=== PATIENT | female | born 1945 | race Caucasian/White ===

== ENCOUNTER → 2017-11-01 | Outpatient (CLI) | payer MEDICARE | END | disposition home or self-care (01) | LOC: ROC 09:50 | PROVIDERS: ATTEND Radiology Radiation Oncology | DX: C20 Malignant neoplasm of rectum (principal); C34.2 Malignant neoplasm of middle lobe, bronchus or lung; J45.909 Unspecified asthma, uncomplicated; Z79.01 Long term (current) use of anticoagulants; Z90.710 Acquired absence of both cervix and uterus; Z93.3 Colostomy status | CPT/HCPCS: G0463 ==

== ENCOUNTER → 2018-02-20 | Outpatient (CLI) | payer MEDICARE | END | disposition home or self-care (01) | LOC: ROC 08:10 | PROVIDERS: ATTEND Radiology Radiation Oncology | DX: C34.12 Malignant neoplasm of upper lobe, left bronchus or lung (principal); C50.412 Malignant neoplasm of upper-outer quadrant of left female breast; C78.5 Secondary malignant neoplasm of large intestine and rectum; Z79.01 Long term (current) use of anticoagulants | CPT/HCPCS: G0463 ==

== ENCOUNTER → 2018-05-15 | Outpatient (CLI) | payer MEDICARE | END | disposition home or self-care (01) | LOC: ROC 07:41 | PROVIDERS: ATTEND Radiology Radiation Oncology | DX: C78.5 Secondary malignant neoplasm of large intestine and rectum (principal); C78.02 Secondary malignant neoplasm of left lung; C80.1 Malignant (primary) neoplasm, unspecified | CPT/HCPCS: G0463 ==

== ENCOUNTER 2018-05-19 09:24 | Inpatient (IN) | payer MEDICARE ==
[~2018-05-19] VITALS: Ht 154.9 cm; Wt 70.9 kg
[~2018-05-19 09:24] MED LIST: BUPIVACAINE/PF 0.5% ONE; EPINEPHRINE 1 MG/ML, 1ML ONE
[2018-05-19] MEDS ORDERED: LACTATED RINGERS 1,000 ML IV SCH (10:12)
[2018-05-19] MEDS ORDERED: ALBU2TAB PO (10:21)
[2018-05-19] MEDS ORDERED: OXYC-307 PO (10:21)
[2018-05-19] MEDS ORDERED: ALBU90AE INH (10:21)
[2018-05-19] MEDS ORDERED: WARF4TAB65 PO (10:21)
[2018-05-19] MEDS ORDERED: PRED10TA14 PO (10:21)
[2018-05-19] MEDS ORDERED: FENT-58 TP (10:21)
[2018-05-19] MEDS ORDERED: LORA-445 PO (10:22)
[2018-05-19 10:25] VITALS: BP 146/84
[2018-05-19] MEDS ORDERED: SCOPOLAMINE PATCH, 1.5MG PATCH.TD72 TD ONE (10:30)
[2018-05-19] MEDS ORDERED: ONDANSETRON ODT 8 MG PO ONE (10:30)
[2018-05-19] MEDS ORDERED: ACETAMINOPHEN 500 MG TABLET PO ONE (10:30)
[2018-05-19] MEDS ORDERED: PLEASE ENTER HEIGHT AND WEIGHT MC SCH (10:30)
[2018-05-19] MEDS ORDERED: PLEASE ENTER ALLERGIES MC SCH (10:30)
[2018-05-19] MEDS ORDERED: OxyconTIN ER 10 MG TAB.ER PO ONE (10:30)
[2018-05-19 11:15] LABS: BASOPHILS % (AUTO) 0 % (0-1); EOSINOPHILS % (AUTO) 0 % (1-7); LYMPHOCYTES # (AUTO) 0.37 x10^3/uL (1-3.4); LYMPHOCYTES % (AUTO) 6 % (22-44); MD NO; MEAN CORPUSCULAR HEMOGLOBIN 29.9 pg (27.0-34.8); MEAN CORPUSCULAR HGB CONC 32.8 g/dL (32.4-35.8); MEAN PLATELET VOLUME 7.8 fL (7.4-10.4); MONOCYTES # (AUTO) 0.13 x10^3/uL (0.2-0.8); MONOCYTES % (AUTO) 2 % (2-9); NEUTROPHILS # (AUTO) 5.25 x10^3/uL (1.8-6.8); NEUTROPHILS % (AUTO) 91 % (42-75); PLATELET COUNT 274 x10^3/uL (130-400); RED BLOOD COUNT 4.29 x10^6/uL (3.82-5.3); RED CELL DISTRIBUTION WIDTH 16.8 % (9.6-15.2)
[2018-05-19 11:22] LABS: INTERNATIONAL NORMALIZED RATIO 0.99 (0.93-1.1); PROTHROMBIN TIME 10.2 Seconds (9.6-11.5)
[2018-05-19 11:25] LABS: ALANINE AMINOTRANSFERASE 38 U/L (12-78); ALBUMIN 3.6 g/dL (3.4-5.0); ANION GAP 6 mmol/L (5-15); CALCIUM 9.4 mg/dL (8.5-10.1); CHLORIDE 110 mmol/L (98-107); CREATININE 0.86 mg/dL (0.55-1.02)
[2018-05-19 11:27] LABS: ALKALINE PHOSPHATASE 191 U/L (45-117); BILIRUBIN,TOTAL 0.6 mg/dL (0.2-1.0)
[2018-05-19] MEDS ORDERED: MIDAZOLAM 1 MG/ML, 2ML ONE (12:36)
[2018-05-19] MEDS ORDERED: FENTANYL PF 100 MCG/2ML ONE ×4 (12:42→14:54)
[2018-05-19] MEDS ORDERED: CEFAZOLIN 1,000 MG ONE (13:01)
[2018-05-19] MEDS ORDERED: ONDANSETRON 2MG/ML, 2ML ONE (13:01)
[2018-05-19] MEDS ORDERED: SUCCINYLCHOLINE 20 MG/ML, 10ML ONE (13:06)
[2018-05-19] MEDS ORDERED: PROPOFOL 10 MG/ML, 20ML ONE (13:06)
[2018-05-19] MEDS ORDERED: ALBUTEROL HFA 90 MCG/SPRAY ONE (13:06)
[2018-05-19] MEDS ORDERED: ALBUTEROL SULFATE 2.5 MG/3 ML NPPB PRN (14:30)
[2018-05-19] MEDS ORDERED: hydrALAzine 20 MG/ML, 1ML IV PRN (14:30)
[2018-05-19] MEDS ORDERED: ONDANSETRON ODT 8 MG PO PRN (14:30)
[2018-05-19] MEDS ORDERED: LABETALOL 5MG/ML, 20ML IV PRN (14:30)
[2018-05-19] MEDS ORDERED: PROMETHAZINE 25 MG/ML, 1ML IV PRN (14:30)
[2018-05-19] MEDS ORDERED: PROMETHAZINE 12.5 MG SUPP PR PRN (14:30)
[2018-05-19] MEDS ORDERED: OXYcodone 5 MG/5 ML ORAL.SOL UDC PO PRN (14:30)
[2018-05-19] MEDS ORDERED: MEPERIDINE/PF 25MG/0.5ML IVPush PRN (14:30)
[2018-05-19] MEDS ORDERED: MIDAZOLAM 1 MG/ML, 2ML IV PRN (14:30)
[2018-05-19] MEDS ORDERED: MORPHINE SULFATE 4 MG/ML, 1ML IVPush PRN (14:30)
[2018-05-19] MEDS ORDERED: OXYcodone 5 MG/5 ML ORAL.SOL UDC ONE (14:54)
[2018-05-19] MEDS: FENTANYL PF 100 MCG/2ML IV PRN ×2 (14:59→15:07)
[2018-05-19] MEDS ORDERED: morphine SULFATE 10 MG/ML, 1ML ONE (15:15)
[2018-05-19 16:05] VITALS: BP 110/69
[2018-05-19] MEDS ORDERED: [UNRECOGNIZED DRUG - REMARK] MC SCH (16:30)
[2018-05-19] MEDS: MORPHINE SULFATE 4 MG/ML, 1ML IVPush PRN ×2 (16:43→18:25)
[2018-05-19] MEDS ORDERED: OXYcodone IR 5MG TABLET PO PRN (17:00)
[2018-05-19] MEDS: OXYcodone/APAP 10/325MG TABLET PO PRN ×2 (17:24→21:50)
[2018-05-19 19:19] VITALS: BP 109/66
[2018-05-20 00:04] VITALS: BP 90/51
[2018-05-20] MEDS: OXYcodone/APAP 10/325MG TABLET PO PRN ×3 (03:54→15:46)
[2018-05-20 04:20] VITALS: BP 96/56
[2018-05-20 06:46] VITALS: BP 116/67
[2018-05-20] MEDS ORDERED: FENTANYL REMOVE PATCH NOTE XX SCH (09:00)
[2018-05-20] MEDS ORDERED: FENTANYL 50 MCG PATCH TD SCH (09:00)
[2018-05-20] MEDS: LORazepam 0.5MG TABLET PO PRN (09:02)
[2018-05-20 14:28] VITALS: BP 151/74
[2018-05-20] MEDS ORDERED: WARFARIN 2 MG TABLET PO-COUM SCH (18:00)
[2018-05-20] MEDS: ALBUTEROL SULFATE 2.5 MG/3 ML HHN PRN (19:49)
[2018-05-20 20:13] VITALS: BP 110/63
[2018-05-21] MEDS: OXYcodone/APAP 10/325MG TABLET PO PRN ×4 (00:39→12:45)
[2018-05-21 02:29] VITALS: BP 102/63
[2018-05-21] MEDS: ALBUTEROL SULFATE 2.5 MG/3 ML HHN PRN (04:50)
[2018-05-21 08:27] VITALS: BP 102/63
[2018-05-21] MEDS: LORazepam 0.5MG TABLET PO PRN (08:50)
[2018-05-21 12:07] VITALS: BP 113/67
[2018-05-21 12:42] VITALS: BP 137/70
== END 2018-05-21 13:33 | disposition home or self-care (01) | DRG 582 ==
LOC: OUT 09:24 → 4NOR 15:56 → OUT 15:58 → 4NOR 15:59 → DCLOUNGE 05-21 13:02
PROVIDERS: ADMIT Surgery; ATTEND Surgery
PROC: 0HBV0ZZ Excision of Bilateral Breast, Open Approach (ICD-10-PCS; principal; 2018-05-19 12:00)
DX: C50.912 Malignant neoplasm of unspecified site of left female breast (principal); J96.21 Acute and chronic respiratory failure with hypoxia; J45.909 Unspecified asthma, uncomplicated; Z17.0 Estrogen receptor positive status [ER+]; Z80.0 Family history of malignant neoplasm of digestive organs; Z83.3 Family history of diabetes mellitus; Z85.048 Personal history of other malignant neoplasm of rectum, rectosigmoid junction, and anus; Z90.710 Acquired absence of both cervix and uterus; Z93.3 Colostomy status; Z90.89 Acquired absence of other organs; Z88.8 Allergy status to other drugs, medicaments and biological substances
CPT/HCPCS: 36415; 80053; 85025; 85610; 88307; 88361; 93005; 94640; C1729; J0171; J0690; J2250; J2405; J2704; J3010; J3490; J7613; Q0162; J0330; J7512

== ENCOUNTER → 2018-06-11 | Outpatient (CLI) | payer MEDICARE ==
[~2018-06-11] MED LIST changes: +ALBU2TAB PO; +ALBU90AE INH; -BUPIVACAINE/PF 0.5% ONE; -EPINEPHRINE 1 MG/ML, 1ML ONE; +FENT-58 TP; +LORA-445 PO; +OXYC-307 PO; +PRED10TA14 PO; +WARF4TAB65 PO
== END ==
LOC: ROC 09:17
PROVIDERS: ATTEND Radiology Radiation Oncology
DX: Z02.9 Encounter for administrative examinations, unspecified (principal)

== ENCOUNTER → 2018-08-21 | Outpatient (CLI) | payer MEDICARE | END | disposition home or self-care (01) | LOC: ROC 08:03 | PROVIDERS: ATTEND Radiology Radiation Oncology | DX: Z02.9 Encounter for administrative examinations, unspecified (principal) ==